=== PATIENT | male | born 1970 | race Caucasian/White ===

== ENCOUNTER → 2018-04-11 | Outpatient (CLI) | payer BC ==
--- NOTE | 2018-04-11 16:15 | PCVCIMAG ---
APPROVED REPORT Study performed: 04/11/2018 15:18:04 EXAM: Comprehensive 2D, Doppler, and color-flow Echocardiogram Patient Location: Echo lab Status: routine BSA: 2.20 HR: 83 bpmBP: 136/88 mmHg Rhythm: NSR Other Information Study Quality: Adequate Indications Dyspnea Syncope 2D Dimensions IVSd: 10.64 (7-11mm) LVDd: 50.05 mm PWd: 10.60 (7-11mm) LVDs: 40.33 (25-40mm) Left Atrium: 40.58 (27-40mm) Aortic Root: 30.06 mm LV Single Plane 4CH: 48.34 % LV Single Plane 2CH: 63.76 % Biplane EF: 56.9 % Volumes Left Atrial Volume (Systole) Single Plane 4CH: 72.79 mLSingle Plane 2CH: 59.63 mL LA ESV Index: 30.00 mL/m2 Aortic Valve AoV Peak Socrates.: 1.41 m/s AO Peak Gr.: 7.90 mmHgLVOT Max P.61 mmHg LVOT Max V: 1.07 m/s Mitral Valve E/A Ratio: 0.9 MV Decel. Time: 215.23 ms MV E Max Socrates.: 0.43 m/s MV A Socrates.: 0.49 m/s IVRT: 110.73 ms Pulmonary Valve PV Peak Socrates.: 1.00 m/sPV Peak Gr.: 3.99 mmHg Pulmonary Vein P Vein S: 0.28 m/sP Vein A: 0.34 m/s P Vein D: 0.37 m/sP Vein A Dur.: 148.8 msec P Vein S/D Ratio: 0.76 Tricuspid Valve TR Peak Socrates.: 2.32 m/s TR Peak Gr.: 21.56 mmHg TV Vmax: 0.45 m/s Left Ventricle The left ventricle is normal size. There is normal LV segmental wall motion. There is normal left ventricular wall thickness. Left ventricular systolic function is normal. The left ventricular ejection fraction is within the normal range. LVEF is 55-60%. Grade I - abnormal relaxation pattern. Right Ventricle The right ventricle is normal size. The right ventricular systolic function is normal. Atria The left atrium size is normal. The right atrium size is normal. Aortic Valve The aortic valve is normal in structure. No aortic regurgitation is present. There is no aortic valvular stenosis. Mitral Valve The mitral valve is normal in structure. There is no mitral valve regurgitation noted. No evidence of mitral valve stenosis. Tricuspid Valve The tricuspid valve is normal in structure. Trace tricuspid regurgitation with PAP of 29 mmHg. Pulmonic Valve The pulmonary valve is normal in structure. Trace pulmonic regurgitation. Great Vessels The aortic root is normal in size. IVC is normal in size and collapses >50% with inspiration. Pericardium There is no pericardial effusion. There is no pleural effusion. <Conclusion> Left ventricular systolic function is normal. There is normal LV segmental wall motion. LVEF is 55-60%. Mild diastolic function. The aortic valve is normal in structure. No aortic regurgitation or stenosis The mitral valve is normal in structure. No mitral valve regurgitation. Trace tricuspid regurgitation with pulmonary artery pressure of 29 mmHg. There is no pericardial effusion.
== END | disposition home or self-care (01) ==
LOC: PCVCIMAG 15:32
PROVIDERS: ATTEND Internal Medicine
DX: R06.09 Other forms of dyspnea (principal); R55 Syncope and collapse
CPT/HCPCS: 93306